=== PATIENT | male | born 1960 | race Caucasian/White ===

== ENCOUNTER → 2019-05-10 | Outpatient (CLI) | payer OTHER ==
--- NOTE | 2019-05-10 14:55 | Diagnostic Imaging Report ---
INDICATION: Occupational health screening. PA and lateral views of the chest were obtained. FINDINGS: The heart size, mediastinal configuration, and pulmonary vascularity are within normal limits. There is no pleural effusion, pneumothorax, or pneumonia. The osseous structures are unremarkable. IMPRESSION: No acute cardiopulmonary abnormality. Dictated by: Dictated on workstation # [id number]
== END ==
LOC: RAD 14:18
PROVIDERS: ATTEND Radiology Diagnostic Radiology
DX: Z02.1 Encounter for pre-employment examination (principal)
CPT/HCPCS: 71046